=== PATIENT | female | born 1945 | race Caucasian/White ===

== ENCOUNTER 2018-05-11 08:44 | Emergency (ER) | payer MEDICARE, OTHER ==
--- NOTE | 2018-05-11 09:15 | EDM.PDOC ---
ED HPI GENERAL MEDICAL PROBLEM - General Chief Complaint: ENT Problem Stated Complaint: POSSSIBLE BROKEN NOSE [id number] Time Seen by Provider: 05/11/18 09:00 Source of Information: Reports: Patient History Limitations: Reports: No Limitations - History of Present Illness INITIAL COMMENTS - FREE TEXT/NARRATIVE: This 73 yo female patient reports to the ED due to falling this morning and hitting her face (nose). The patient reports a dog ran into her this morning causing her to loose her balance. The patient reports she hit her face and nose on the stove. The patient reports she had a nose bleed for about 40 minutes that resolved with direct pressure. The patient has noticed increased swelling in the nose. The patient reports she continues to have pain in her nose and face. The patient also has some stiffness to the right side of her neck. The patient reports she has a history of 2 previous concussions. 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 Nose Pain Score (Numeric/FACES): 3 - Related Data Allergies Allergy/AdvReac Type Severity Reaction Status Date / Time morphine Allergy Vomiting Verified 05/11/18 08:49 Penicillins Allergy Rash Verified 05/11/18 08:49 Home Meds: Home Meds Levothyroxine Sodium [Synthroid] 112 mcg PO DAILY 05/11/18 [History] Past Medical History HEENT History: Reports: Impaired 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 ED EXAM, GENERAL - Physical Exam Exam: See Below Exam Limited By: No Limitations General Appearance: Alert, WD/WN, Mild Distress, Thin Eye Exam: Bilateral Eye: EOMI, Normal Inspection, PERRL Ears: Normal External Exam, Normal Canal, Hearing Grossly Normal, Normal TMs Nose: Nasal Deformity (with swelling), Other (no active bleeding noted. The patient does have some blood present in her nares bilaterally with increased amount in the right side compared to left. ) Throat/Mouth: Normal Inspection, Normal Lips, Normal Teeth, Normal Gums, Normal Oropharynx, Normal Voice, No Airway Compromise Head: Facial Tenderness (with swelling over the nose and maxillary sinus areas) Neck: Tender Lateral (mild tenderness to the right lateral neck. The patient denied any pain with palpation of the posterior spine. The patient reports some stiffness with movement, but no specific pain with neck movements. ) Respiratory/Chest: No Respiratory Distress, Lungs Clear, Normal Breath Sounds, No Accessory Muscle Use, Chest Non-Tender Cardiovascular: Normal Peripheral Pulses, Regular Rate, Rhythm, No Edema, No Gallop, No JVD, No Murmur, No Rub GI/Abdominal: Normal Bowel Sounds, Soft, Non-Tender, No Organomegaly, No Distention, No Abnormal Bruit, No Mass (Female) Exam: Deferred Rectal (Female) Exam: Deferred Extremities: Normal Inspection, Normal Range of Motion, Non-Tender, Normal Capillary Refill, No Pedal Edema Neurological: Alert, Oriented, CN II-XII Intact, Normal Cognition, Normal Gait, Normal Reflexes, No Motor/Sensory Deficits Psychiatric: Normal Affect, Normal Mood Skin Exam: Warm, Dry, Intact, Normal Color, No Rash Lymphatic: No Adenopathy Course - Vital Signs Last Recorded V/S: Last Vital Signs Temp 36.3 C 05/11/18 08:52 Pulse 80 05/11/18 09:58 Resp 16 05/11/18 09:58 BP 139/55 L 05/11/18 09:58 Pulse Ox 96 05/11/18 09:58 Departure - Departure Time of Disposition: 10:21 Disposition: Home, Self-Care 01 Condition: Fair Clinical Impression: Nasal bone fractures Qualifiers: Encounter type: initial encounter Fracture type: closed Qualified Code(s): S02.2XXA - Fracture of nasal bones, initial encounter for closed fracture Facial contusion Qualifiers: Encounter type: initial encounter Qualified Code(s): S00.83XA - Contusion of other part of head, initial encounter - Discharge Information *PRESCRIPTION DRUG MONITORING PROGRAM REVIEWED*: Not Applicable *COPY OF PRESCRIPTION DRUG MONITORING REPORT IN PATIENT ABHIJIT: Not Applicable Instructions: Nasal Fracture, [id number] Forms: ED Department Discharge Care Plan Goals: The patient and family were advised of the examination and CT results during the visit. The patient was advised to rest and relax. The patient may ice her nose to reduce swelling when she is sitting still. The patient may take Tylenol or ibuprofen as directed for temporary symptom relief. If the patient has any additional symptoms or concerns, the patient should either return to the emergency department or visit her primary care facility.
--- NOTE | 2018-05-11 09:49 | CT ---
Clinical history: 73-year-old female injured in a fall (hit face on stones) Interpretation: Abnormal. *Comminuted nasal bone fracture with subcutaneous air and surrounding soft tissue swelling. Nasal septum is straight midline. No foreign bodies. Paranasal and mastoid sinuses clear. Uniformly thick bony calvarium without sign of skull fracture, underlying brain contusion or epidural/subdural hematoma. Age-appropriate symmetric cerebral cortical atrophy. Subtle scattered areas of decreased attenuation consistent with microvascular ischemia. No territorial infarcts or encephalomalacia. No supratentorial or posterior fossa mass lesion. No sign of acute intracerebral/intraventricular/subarachnoid bleed.
--- NOTE | 2018-05-11 09:54 | CT ---
Clinical history: 73-year-old female injured in fall (hit face on stove). "Nasal bone fractures" on CT head. Scan technique: Volume acquisition of data emergency unenhanced CT scan of the facial bones including orbits sinuses and maxilla/mandible obtained while the patient was lying supine on the Siemens multislice scanner [place], [place]. All data archived in the PACS system for storage, reformatting axial/sagittal/coronal planes and study (bone/brain and sinus windows). Interpretation: Soft tissue swelling nose with underlying comminuted fracture of the nasal spine, midline and to the right ala. Normal midline nasal septum. Symmetric clear pneumatization paranasal sinuses i.e. no fracture or pathologic air-fluid level. No mucoperiosteal inflammation. No fractures of the bony orbit, zygomatic arches, anterior maxillary spine or maxilla/mandible (symmetric occlusion). Reactive arthritic changes atlantoaxial joint. CONCLUSION: Acute nasal bone fracture (minimal displacement fragments).
== END 2018-05-11 10:36 | disposition home or self-care (01) ==
LOC: DL.ED 08:44
DX: S02.2XXA Fracture of nasal bones, initial encounter for closed fracture (principal); S00.83XA Contusion of other part of head, initial encounter; Z88.0 Allergy status to penicillin; W01.10XA Fall on same level from slipping, tripping and stumbling with subsequent striking against unspecified object, initial encounter
CPT/HCPCS: 70450; 70486; 99284